=== PATIENT | male | born 1960 | race Caucasian/White ===

== ENCOUNTER → 2016-06-10 | Outpatient (CLI) | payer OTHER ==
[~2016-06-10] MED LIST: ALLO100T30 PO; DABI150C PO; FLEC100T PO; FLEC50TA25 PO; LOSA50TA6 PO
== END | disposition home or self-care (01) ==
LOC: CFH 07:15
PROVIDERS: ATTEND Internal Medicine Nephrology
DX: N28.1 Cyst of kidney, acquired (principal)
CPT/HCPCS: 76770

== ENCOUNTER 2017-04-08 08:45 | Emergency (ER) | payer BC, OTHER ==
[~2017-04-08] VITALS: Ht 185.4 cm; Wt 101.9 kg
[2017-04-08 10:44] LABS: BASOPHILS # (AUTO) 0.01 x10^3/uL (0-0.1); BASOPHILS % (AUTO) 0 % (0-1); EOSINOPHILS # (AUTO) 0.09 x10^3/uL (0-0.4); EOSINOPHILS % (AUTO) 1 % (1-7); LYMPHOCYTES # (AUTO) 1.58 x10^3/uL (1-3.4); LYMPHOCYTES % (AUTO) 26 % (22-44); MD NO; MEAN CORPUSCULAR HEMOGLOBIN 30.7 pg (27.5-34.5); MEAN CORPUSCULAR HGB CONC 34.1 g/dL (33.2-36.2); MEAN CORPUSCULAR VOLUME 89.8 fL (81-97); MEAN PLATELET VOLUME 8.7 fL (7.4-10.4); MONOCYTES % (AUTO) 10 % (2-9); NEUTROPHILS # (AUTO) 3.86 x10^3/uL (1.8-6.8); NEUTROPHILS % (AUTO) 63 % (42-75); PLATELET COUNT 227 x10^3/uL (130-400); RED BLOOD COUNT 4.68 x10^6/uL (4.38-5.82); RED CELL DISTRIBUTION WIDTH 12.4 % (9.4-14.8)
[2017-04-08 10:56] LABS: ALBUMIN 3.8 g/dL (3.4-5.0); ANION GAP 4 mmol/L (5-15); CALCIUM 9.1 mg/dL (8.5-10.1); CHLORIDE 108 mmol/L (98-107); CREATININE 1.48 mg/dL (0.7-1.3)
[2017-04-08 11:00] LABS: TROPONIN I < 0.015 ng/mL (0.000-0.045)
[2017-04-08 11:38] VITALS: BP 136/74
== END 2017-04-08 11:40 | disposition home or self-care (01) ==
LOC: ED 10:53
DX: R20.1 Hypoesthesia of skin (principal); E87.5 Hyperkalemia; I48.91 Unspecified atrial fibrillation; Z86.73 Personal history of transient ischemic attack (TIA), and cerebral infarction without residual deficits
CPT/HCPCS: 36415; 70551; 80048; 82040; 84484; 85025; 93005; 99285

== ENCOUNTER 2020-01-22 16:44 | Emergency (ER) | payer BC, OTHER ==
[~2020-01-22 16:44] MED LIST changes: +LOSA50TA14 PO; -LOSA50TA6 PO
== END 2020-01-22 17:49 | disposition left against medical advice (07) ==
LOC: ED 17:43
DX: R10.9 Unspecified abdominal pain (principal); Z53.21 Procedure and treatment not carried out due to patient leaving prior to being seen by health care provider